=== PATIENT | male | born 1955 | race Hispanic/Latino ===

== ENCOUNTER 2021-07-26 11:59 | Emergency (ER) | payer SELFPAY ==
[2021-07-26] MEDS ORDERED: METOPROLOL TARTRATE 50 MG TAB PO ONE (12:28)
--- NOTE | 2021-07-26 12:35 | Emergency Department Report ---
HPI - General Time Seen by Provider: 07/26/21 12:20 - HPI HPI: We received this patient sent from 's office because he was found to be in atrial fibrillation. The patient has a long history of atrial fibrillation and has not been on medication recently. He does not know how long he has been in atrial fibrillation this time. He has been placed on anticoagulation in the past but is currently taking no medications. The patient had an EKG at Dr. Francois's office that showed a heart rate of 145 from atrial fibrillation with rapid ventricular response. The patient denies any palpitations shortness of breath chest pain nausea vomiting fever chills diaphoresis or any other associated symptoms. Nothing makes this better nor worse. He has a history of chronic hypoxemic respiratory failure but he does not know what has caused it and says this started sometime in May. He uses usually 2 L of oxygen and his saturations will drop into the low 80s if he does not use oxygen and exerts himself. He has a history also of cirrhosis with hepatitis C for which she has been cured and also hepatocellular carcinoma and portal hypertension. On June 10 he had a transesophageal echocardiogram that showed mild left ventricular dysfunction with no clots in the left atrial or left atrial appendage. He had a negative bubble study with moderate atheroma with thick plaque in the aorta. He has a history of moderate mitral regurgitation. ED Past Medical Hx - Past Medical History Previous Medical History?: Yes Additional medical history: Atrial fibrillation, chronic hypoxemic respiratory failure, cirrhosis, hepatitis C, hepatocellular carcinoma, portal hypertension. - Family History Family history: no significant - Social History Smoking Status: Former Smoker Substance Use Type: None - Medications Home Medications: Home Medications Medication Instructions Recorded Confirmed Last Taken Type Apixaban [Eliquis] 5 mg PO BID 30 Days #60 tab 07/26/21 Unknown Rx Digoxin [Lanoxin] 0.125 mg PO DAILY 30 Days #30 07/26/21 Unknown Rx tablet Metoprolol Succinate [Toprol Xl] 25 mg PO QDAC 30 Days #30 tab 07/26/21 Unknown Rx ED Review of Systems ROS: Stated complaint: USZY/HEART PROBLEMS Other details as noted in HPI Other: All other systems reviewed and negative. Physical Exam - Physical Exam Physical Exam: Physical Exam: Constitutional: AAOX3. No acute distress. No diaphoresis. HENT: Normocephalic. Pupils equal and reactive. No throat edema or erythema. Neck: No neck rigidity or tenderness. Cardiovascular: Heart sounds: No murmur. Tachycardic rate and regular rhythm. Pulses: Intact distal pulses. Lungs: No wheezing or rales. Chest wall: No tenderness. Abdominal: No distension. No mass/pulsatile mass. No abdominal tenderness, guarding nor rebound. Musculoskeletal: Normal range of motion. +2 bilateral pretibial pitting edema with no calf tenderness to palpation. Skin: Warm and dry. Neurological: Alert and oriented to person, place, and time. Psychiatric: Mood and affect normal. Normal cognition and memory. Normal judgement. ED Course - Reevaluation(s) Reevaluation #1: 07/26/21 12:37 The patient arrived to the emergency department in sinus tachycardia. Seems that his atrial fibrillation resolved. We are calling Dr. Francois for further instructions and doing a cardiac work-up on the patient. Reevaluation #2: 07/26/21 13:05 EKG done at 1241 shows a rate of 99, normal. The rhythm is sinus rhythm, normal. There is probable left atrial enlargement. There are no ST or T wave normalities. Reevaluation #3: 07/26/21 13:28 The patient remaine asymptomatic throughout his stay in the emergency department. I spoke to Dr. Francois who recommended we place the patient on digoxin 0.125 mg p.o. daily as well as 25 mg of Toprol-XL daily and Eliquis 5 mg p.o. twice daily. 07/26/21 13:29 Cardiac enzymes CBC and chemistries were all within normal limits. BNP was negative. Chest x-ray was read as possible mild CHF. The patient seems comfortable and we will discharge him at this time. He is satting at 97% on his 2 usual liters of oxygen. He will follow-up with Dr. Alessandro REHMAN or return if any other issues arise. ED Medical Decision Making - Lab Data Result diagrams: 07/26/21 12:35 07/26/21 12:35 Critical care attestation.: If time is entered above; I have spent that time in minutes in the direct care of this critically ill patient, excluding procedure time. ED Disposition Clinical Impression: Atrial fibrillation Disposition: 01 HOME / SELF CARE / HOMELESS Is pt being admited?: No Does the pt Need Aspirin: No Condition: Stable Instructions: Apixaban oral tablets, Atrial Fibrillation, Preventing Atrial Fibrillation-Related Stroke Prescriptions: Apixaban [Eliquis] 5 mg PO BID 30 Days #60 tab Digoxin [Lanoxin] 0.125 mg PO DAILY 30 Days #30 tablet Metoprolol Succinate [Toprol Xl] 25 mg PO QDAC 30 Days #30 tab Time of Disposition: 13:30 Print Language: SWEDISH
[2021-07-26 12:46] LABS: Basophils % (Auto) 0.4 % (0.0-1.8); Eosinophils # (Auto) 0.2 K/mm3 (0.0-0.4); Eosinophils % (Auto) 3.5 % (0.0-4.3); Hematocrit 41.2 % (30.3-42.9); Hemoglobin 14.2 gm/dl (10.1-14.3); Lymphocytes # (Auto) 1.8 K/mm3 (1.2-5.4); Lymphocytes % (Auto) 29.9 % (13.4-35.0); Mean Corpuscular HGB Conc 34 % (30-34); Mean Corpuscular Volume 103 fl (79-97); Monocytes # (Auto) 0.8 K/mm3 (0.0-0.8); Monocytes % (Auto) 13.1 % (0.0-7.3); Platelet Count 160 K/mm3 (140-440); Red Blood Count 4.01 M/mm3 (3.65-5.03); Red Cell Distribution Width 15.9 % (13.2-15.2)
--- NOTE | 2021-07-26 12:51 | XRay Report ---
CHEST 1 VIEW 07/26/2021 12:31 PM INDICATION / CLINICAL INFORMATION: Chest Pain. COMPARISON: None available. FINDINGS: SUPPORT DEVICES: None. HEART / MEDIASTINUM: There is moderate cardiomegaly. LUNGS / PLEURA: There is mild interstitial edema. No pneumothorax. ADDITIONAL FINDINGS: No significant additional findings. IMPRESSION: 1. Findings likely indicating mild CHF. Signer Name: Cristopher Cisneros MD Signed: 07/26/2021 12:41 PM Workstation Name: [email or web address]
[2021-07-26 13:13] LABS: Alanine Aminotransferase 20 units/L (7-56); Albumin 3.5 g/dL (3.9-5); Blood Urea Nitrogen 6 mg/dL (7-17); Calcium 9.2 mg/dL (8.4-10.2); Hemolysis Index 9
[2021-07-26 13:14] LABS: BUN/Creatinine Ratio 12
[2021-07-26] MEDS ORDERED: METOPROLOL SUCCINATE XL 25 MG TAB PO ONE (14:00)
[2021-07-26] MEDS ORDERED: DIGOXIN 0.125 MG TAB PO ONE (14:00)
[2021-07-26] MEDS ORDERED: APIXABAN 5 MG TAB PO SCH (14:00)
[2021-07-26 15:13] VITALS: BP 112/69
== END 2021-07-26 15:13 | disposition home or self-care (01) ==
LOC: ED 11:59
DX: I48.91 Unspecified atrial fibrillation (principal); Z87.891 Personal history of nicotine dependence
CPT/HCPCS: 36415; 71045; 80053; 83880; 84484; 85025; 93005; 99283

== ENCOUNTER 2021-08-12 13:57 | Emergency (ER) | payer SELFPAY ==
[2021-08-12 14:16] VITALS: BP 129/72
[2021-08-12] MEDS ORDERED: HEPARIN 10,000 UNITS/10 ML VIAL IV PRN (14:16)
[2021-08-12 14:57] LABS: Hemoglobin 14.8 gm/dl (11.8-15.2); Mean Corpuscular HGB Conc 34 % (32-34); Mean Corpuscular Volume 104 fl (84-94); Platelet Count 148 K/mm3 (140-440); Red Blood Count 4.23 M/mm3 (3.65-5.03)
[2021-08-12 15:08] LABS: INR 1.24 (0.87-1.13)
[2021-08-12 15:09] LABS: Partial Thromboplastin Time 35.8 Sec. (24.2-36.6)
[2021-08-12 15:13] LABS: Basophils # (Auto) 0.1 K/mm3 (0.0-0.1); Eosinophils # (Auto) 0.3 K/mm3 (0.0-0.4); Eosinophils % (Auto) 3.4 % (0.0-4.3); Monocytes # (Auto) 1.2 K/mm3 (0.0-0.8)
[2021-08-12 15:24] LABS: Alanine Aminotransferase 24 units/L (7-56); Albumin 3.8 g/dL (3.9-5); BUN/Creatinine Ratio 18; Blood Urea Nitrogen 14 mg/dL (9-20); Calcium 9.4 mg/dL (8.4-10.2); Hemolysis Index 6
--- NOTE | 2021-08-12 15:25 | XRay Report ---
CHEST 2 VIEWS INDICATION / CLINICAL INFORMATION: Dysrhythmia. COMPARISON: 07/26/2021 FINDINGS: SUPPORT DEVICES: None. HEART / MEDIASTINUM: There is mild cardiomegaly. LUNGS / PLEURA: There are bilateral interstitial and patchy airspace opacities. No pneumothorax. ADDITIONAL FINDINGS: No significant additional findings. IMPRESSION: 1. Bilateral interstitial and airspace opacities are noted. The appearance of the lungs is similar to the prior study. The appearance is most suggestive of edema. Signer Name: Arsen Nelson MD Signed: 08/12/2021 3:20 PM Workstation Name: [id number]
[2021-08-12 16:37] LABS: Band Neutrophils # (Manual) 0.1 K/mm3; Basophils % (Manual) 0 % (0.0-1.8); Eosinophils % (Manual) 0 % (0.0-4.3); Total Cells Counted 100
[2021-08-12 16:40] LABS: Platelet Estimate Consistent w Auto
[2021-08-12 16:41] LABS: Anisocytosis 1+; Ovalocytes 1+; Poikilocytosis 1+
--- NOTE | 2021-08-13 10:04 | Electrocardiograph Report ---
[facility] Test Date: 2021-08-12 Test Time: 14:22:40 Pat Name: ADAN MUNOZ Department: Room: Gender: M Adjunct Psychology Professor: RENAE : 1955 Requested By: ED DOC Order Number: [id number] Reading MD: Cody Matos Measurements Intervals [place] Rate: 133 P: MD: QRS: 14 QRSD: 89 T: 46 QT: 340 QTc: 506 Interpretive Statements Atrial flutter with predominant 2:1 AV block Repol abnrm suggests ischemia, diffuse leads Prolonged QT interval Compared to ECG 07/26/2021 12:41:34 2:1 AV block now present Early repolarization now present Prolonged QT interval now present Sinus rhythm no longer present Left ventricular hypertrophy no longer present ST (T wave) deviation no longer present Possible ischemia still present Electronically Signed On 08-13-2021 10:04:21 EDT by Cody Matos
== END 2021-08-13 02:50 | disposition left against medical advice (07) ==
LOC: ED 13:57
DX: R00.0 Tachycardia, unspecified (principal); Z53.21 Procedure and treatment not carried out due to patient leaving prior to being seen by health care provider
CPT/HCPCS: 36415; 71046; 80053; 80162; 82550; 82553; 84484; 85007; 85025; 85379; 85610; 85730; 93005